=== PATIENT | female | born 1950 | race Caucasian/White ===

== ENCOUNTER 2016-09-28 17:13 | Inpatient (IN) ==
[2016-09-28] MEDS ORDERED: ZOSYN 3.375 GM/NS 3.375 GM/50 ML IVPB IV ONE (17:16)
[2016-09-28] MEDS ORDERED: NS 1,000 ML IV ONE ×2 (17:16→21:31)
[2016-09-28] MEDS ORDERED: FLAGYL 750 MG in NS 150 ML IV ONE (18:22)
[2016-09-28 18:35] LABS: AGAP 14; ALBUMIN 3.4 g/dL (3.5-5.0); ALKALINE PHOSPHATASE 72 U/L (32-104); AMYLASE 24 U/L (20-200); BUN 6 mg/dL (8-22); CALCIUM 8.3 mg/dL (8.8-10.2); CHLORIDE 100 mmol/L (98-107); COSMO 274; GOT 36 U/L (10-30); GPT 22 U/L (10-36); LIPASE 11 U/L (13-60); POTASSIUM 3.7 mmol/L (3.5-5.1); SODIUM 138 mmol/L (136-145); TCO2 24 mmol/L (25-35); TOTAL BILIRUBIN 0.97 mg/dL (0.20-1.00); TOTAL PROTEIN 6.6 g/dL (6.3-8.3)
[2016-09-28 18:49] LABS: BASO% 0.1 % (0.0-0.8); HEMATOCRIT 41.3 % (37.0-47.0); LYMPH# 0.29 X1000 (1.2-3.4); LYMPH% 2.8 % (20.5-51.1); MANUAL DIFF NEEDED? NO; MCH 34.9 PG (27-31); MCHC 33.9 g/dL (33-37); MONO# 0.57 X1000 (0.11-0.59); MONO% 5.6 % (1.7-9.3); MPV 10.2 FL (7.4-10.4); NEUT% 91.5 % (42.2-75.2); PLT 164 X1000 (130-400); RBC 4.01 XMIL (4.2-5.4)
--- NOTE | 2016-09-28 19:21 | PROVIDER DOCUMENTATION ---
This chart was entered by Madeleine Mcintyre Scribe, acting as scribe for Bobby Neal MD. HPI-Abdominal Pain/GI Problem - General Chief Complaint: Abdominal Pain Stated Complaint: post op abd pain Time Seen by Provider: 09/28/16 17:16 Source: patient Allergies/Adverse Reactions: Patient Allergies Allergy/AdvReac Type Severity Reaction Status Date / Time No Known Allergies Allergy Verified 09/28/16 18:09 Home Medications: Home Medication List Medication Instructions Recorded Confirmed Last Taken Type Alendronate Sodium [Alendronate 09/28/16 Unknown History Sodium] Esomeprazole Magnesium [Nexium] 20 mg PO 09/28/16 Unknown History - History of Present Illness-ABD Nature of Presenting Problems: 65 year old F presents to the ED with a cc of ABD pain, nausea, and vomiting. PT states that this has been going on since February 2016. PT states that she had an EGD and colonoscopy today and since then she has had ABD distention and pain. PT states that Dr. Vigil took her back into surgery to relieve some gas. PT has NG tube in place on assessment. Abdominal Pain Onset Location: reports: generalized abdomen Pain Radiation: reports: no radiation Quality of Pain: reports: aching Severity in ED: reports: mild Onset/Duration: reports: this evening Timing: reports: still present Modifying Factors: improves with: nothing Associated Symptoms: reports: denies symptoms Bruising or Bleeding Gums?: No Similar Symptoms Previously?: No Recently seen or treated by another doctor?: Yes Review of Systems - Adult - REVIEW OF SYSTEMS - ADULT Constitutional: denies: chills, fever Eyes: reports: no symptoms reported Ears, Nose, Mouth & Throat: reports: no symptoms reported Cardiovascular: denies: chest pain, palpitations Respiratory: denies: cough, shortness of breath Gastrointestinal: reports: abdominal pain. denies: nausea, vomiting Genitourinary: denies: dysuria, hematuria Musculoskeletal: reports: no symptoms reported Integumentary: reports: no symptoms reported Neurological: reports: no symptoms reported Psychiatric: reports: no symptoms reported Endocrine: reports: no symptoms reported Hematologic/Lymphatic: reports: no symptoms reported Allergic/Immunologic: reports: no symptoms reported All Other Systems: Reviewed and Negative Past History - Adult - PAST MEDICAL HISTORY-ADULT Review of Records: reports: Nursing Assessment Review, Medications Reviewed Major Childhood Illnesses: reports: denies history Musculoskeletal: reports: osteoporosis - PRIOR SURGERIES/PROCEDURES Surgical/Procedure History: reports: other (breast biopsies) - IMMUNIZATION STATUS Childhood Immunizations: See Nurse Assessment Flu Vaccine: See Nurse Assessment - SOCIAL HISTORY Smoking: quit greater than 1 year Substance Use: none/never Alcohol Use Frequency: never Physical Exam-General - PHYSICAL EXAM-ADULT Initial Vital Signs Reviewed: Yes - CONSTITUTIONAL General Appearance: appears well, alert, no apparent distress - HEAD, EARS, NOSE, MOUTH & THROAT HENMT: other (NG tube in place) - RESPIRATORY Respiratory: chest non-tender, lungs clear, normal breath sounds - CARDIOVASCULAR Cardiovascular: normal peripheral pulses, regular rate, rhythm, no edema - GASTROINTESTINAL (ABDOMEN) Abdominal Exam: distended, tenderness (diffuse tenderness) - SKIN Integumentary: normal color, normal turgor, warm/dry - PSYCHIATRIC Psych/Mental Status: normal mood/affect, normal thought content, normal thought process, oriented x 3 Progress - PLAN OF CARE/RESULTS Progress/Plan/Lab Results: Vital Signs - 8 hr 09/28/16 18:08 Temperature 98.6 F Pulse Rate 94 H Respiratory Rate 16 Blood Pressure 133/82 O2 Sat by Pulse Oximetry 98 Laboratory Results - last 24 hr 09/28/16 09/28/16 18:00 18:00 WBC 10.25 RBC 4.01 L Hgb 14.0 Hct 41.3 MCV 103.0 H MCH 34.9 H MCHC 33.9 RDW Std Deviation 12.4 Plt Count 164 MPV 10.2 Immature Gran % (Auto) 0.0 Neut % (Auto) 91.5 H Lymph % (Auto) 2.8 L [place] % (Auto) 5.6 Eos % (Auto) 0.0 Baso % (Auto) 0.1 Immature Gran # (Auto) 0.00 Neut # (Auto) 9.38 H Lymph # (Auto) 0.29 L [place] # (Auto) 0.57 Eos # (Auto) 0.00 Baso # (Auto) 0.01 Sodium 138 Potassium 3.7 Chloride 100 Carbon Dioxide 24 L Anion Gap 14 BUN 6 L Creatinine 0.6 Estimated GFR/1.73 m2 > 60 BUN/Creatinine Ratio 10 Glucose 105 H Calculated Osmolality 274 Calcium 8.3 L Total Bilirubin 0.97 AST 36 H ALT 22 Alkaline Phosphatase 72 Total Protein 6.6 Albumin 3.4 L Globulin 3.2 Albumin/Globulin Ratio 1.1 Amylase 24 Lipase 11 L Orders Category Date Time Status Saline Loc DIRECTED Care 09/28/16 17:16 Active NPO Diet 09/28/16 17:16 Active ABDOMEN/PELVIS W/O CONTRAST [CT] Stat Exams 09/28/16 17:15 Taken AMYLASE [CHEM] Stat Lab 09/28/16 18:00 Completed CBC WITH ELECTRONIC DIFF [HEME] Stat Lab 09/28/16 18:00 Completed COMPREHENSIVE METABOLIC PANEL [CHEM] Stat Lab 09/28/16 18:00 Completed LIPASE [CHEM] Stat Lab 09/28/16 18:00 Completed 0.9% Sodium Chloride Inj [Ns] 1,000 ml Med 09/28/16 17:16 Discontinued IV 999 mls/hr Metronidazole [Flagyl] 750 mg Med 09/28/16 18:22 Active 0.9% Sodium Chloride Inj [Ns] 150 ml IV NOW Piperacil/Tazobact 3.375 gm/Ns [Zosyn 3.375 gm/Ns] Med 09/28/16 17:16 Discontinued 3.375 gm in 50 ml IV NOW Result Diagrams: 09/28/16 18:00 09/28/16 18:00 - CT/MRI 1 CT Study: Abdomen, Pelvis Impression: Abnormal (no perforation, new diverticulitis at splenic flexure, persistent inflammation at sigmoid colon, follow up recommended if not already done: Dr. Zimmer(radiologist)) - CONSULTS/PCP/HOSPITALIST Notification #1 *Consult/PCP/Hospitalist*: Dr. Gómez Time Discussed: 18:31 Consult Disposition: other (Consult again because no labs are back) #2 Consult: Dr. Longo(hospitalist) Time Discussed: 19:14 Consult Disposition: Admit Departure - Departure Time of Disposition Decision: 19:15 DIAGNOSIS: Acute diverticulitis Disposition: ADMITTED INPATIENT 09 Certified Medical Emergency: Emergent Condition: Stable Referrals and Follow-Ups: Silas Soto [Primary Care Provider] - - Critical Care Note This patient required my direct & personal management of CC.: Yes This chart was documented by the indicated scribe, (Madeleine Mcintyre Scribe) and accurately reflects the services I performed and decisions made by me, Bobby Neal MD, as attested by the provider's signature.
[2016-09-28] MEDS: MORPHINE IV ONE (20:32)
[2016-09-28] MEDS ORDERED: ZOFRAN IV ONE (20:36)
[2016-09-28] MEDS ORDERED: ZOFRAN ONE (20:38)
--- NOTE | 2016-09-28 21:00 | CONSULTATION ---
DATE OF CONSULTATION: 09/28/2016 ATTENDING PHYSICIAN: Darío Longo MD. PRIMARY CARE PHYSICIAN: Silas Soto MD. REASON FOR CONSULTATION: Post-colonoscopy abdominal pain and CT scan showing evidence of diverticulitis. HISTORY OF PRESENT ILLNESS: Ms. Short is a 65-year-old female who had been complaining of abdominal pain, nausea, vomiting, diarrhea postprandial for a few months. She saw Dr. Vigil as an outpatient. She underwent EGD and colonoscopy on 09/28/2016. Post- colonoscopy she complained of abdominal distention, nausea, vomiting and abdominal pain. Initially it was thought to be gas retention secondary colonoscopy so Dr. Vigil performed a flexible sigmoidoscopy a few hours later to take the gas out, but despite that patient continued to have abdominal pain, nausea, vomiting, and abdominal distention. The patient had a KUB done at [facility] which does not show any free air. Because of ongoing symptoms of abdominal pain, distention, nausea, vomiting, an NG tube was inserted at [facility] and the patient was transported to [facility]. There the patient went for a CT scan of the abdomen and pelvis and the CT scan showed evidence of diverticulitis, splenic flexure of sigmoid colon. No perforation is detected. I was there with the patient and family while they were undergoing CT scan. PAST MEDICAL HISTORY: Gastroesophageal reflux disease, recurrent diverticulitis. MEDICATIONS AT HOME: 1. Nexium once daily. 2. Alendronate. ALLERGIES: No known drug allergies. FAMILY HISTORY: Noncontributory. REVIEW OF SYSTEMS: Denies any current fevers, rigors, or chills. Denies any chest pain, shortness of breath, dyspnea. Denies any genitourinary complaints. Does complain of feeling nauseous and abdominal pain in the periumbilical region of a diffuse nature. She denies any vomiting blood or passing blood in the stools. She is able to pass some gas while waiting for the CT scan. Prior to that she was having worsening abdominal distention but since passing gas her abdominal distention started to improve. MEDICATIONS IN EMERGENCY ROOM: IV Zosyn, IV fluids and IV Flagyl. She is currently NPO. PHYSICAL EXAMINATION: Vital Signs: Temp 98.6, pulse 94, respiratory rate 16, blood pressure 132/82, saturating 98% on room air. Body weight 205 pounds. Height of 5 feet 6 inches. BMI of 33.1 kg/m2. General: Moderately malnourished lying on a stretcher in mild distress with abdominal pain. HEENT: No pallor. No icterus. Pupils equal, reactive to light. Neck: Supple. Chest: Decreased breath sounds. Heart: Mildly tachycardic. No murmurs. Abdomen: Discomfort in the periumbilical region, left upper and left lower quadrant. No rebound or guarding. Mild distention noted. Bowel sounds are present. Extremities: No cyanosis, clubbing, edema. Neurologic: Alert, awake, oriented. LABS: Hemoglobin and hematocrit is 14 and 41.3, white count 10.2, platelet count of 164,000. MCV of 103, sodium 138, potassium 3.7, chloride 100, bicarbonate 24, BUN of 6, creatinine 0.6, glucose of 105, calcium is 8.3, total bilirubin is 0.97. AST 36, ALT 22, alkaline phosphatase 72, total protein 6.6, albumin 2.4, amylase 34, lipase of 11. CT scan: Final reading is currently pending. The preliminary reading is showing evidence of diverticulitis at splenic flexure and sigmoid colon. IMPRESSION AND PLAN: Post-colonoscopy abdominal pain, worsening distention, nausea, vomiting with CT scan showing evidence of diverticulitis in the splenic flexure and sigmoid colon. She had 1 rectal polyp which was removed during colonoscopy. There was evidence of diverticulosis noted on colonoscopy causing difficulty with vastus scope. Gastritis noted on EGD was biopsied. Reflux disease. RECOMMENDATIONS: At this point, will keep the patient NPO. We will keep her on IV fluids, IV antibiotics and IV pain control. Tomorrow morning if the patient's abdominal pain is getting better we can advance the diet to a clear liquid diet. She will need blood work in the morning. We will start her on GI prophylaxis with PPI. Once able to start p.o., we will start her on Culturelle 1 capsule p.o. b.i.d. for 6 weeks. If the patient is feeling better in a day, we may be able to discharge home on Levaquin and Flagyl for a total of 10 days. The patient will call and schedule an appointment with Dr. Vigil on Sunday/early next week. The above plan was discussed with the patient's family. All questions answered. I also discussed the plan of care with ER physician, Dr. Jordan. cc: Kev Timmons MD MTDD
[2016-09-28] MEDS: SODIUM CHLORIDE 0.9% INJ SCH (21:05)
--- NOTE | 2016-09-28 21:27 | HISTORY AND PHYSICAL ---
CHIEF COMPLAINT: Nausea, vomiting, abdominal pain. HISTORY OF PRESENT ILLNESS: This is a 65-year-old white female with no major medical problems, who came in the outpatient office today with evidence of diverticulitis. The patient had a colonoscopy today per Dr. Vigil for recurrent nausea and vomiting, and she was due for her scheduled outpatient colonoscopy. She underwent the procedure without difficulty. However, subsequently, she developed cramping lower abdominal pain in her lower quadrants. Dr. Vigil was concerned over complications from the colonoscopy, including perforation. She got a CT scan. I am not sure she got it as an outpatient, or in the process of getting to the ER, but there was no bowel perforation. She did have evidence of sigmoid ascending colon diverticulitis, and she was admitted for treatment. Workup in the ER was positive for diverticulitis, and she was admitted as such. NG tube was placed, I guess due to per protracted nausea and vomiting, but she had no bowel perforation, and I do not think she has ileus, although she definitely has dilation of her colon, but that may be related to kind of chronic, or just the recent air insufflation in there. PAST MEDICAL HISTORY: Osteoporosis and reflux, really nothing else. PAST SURGICAL HISTORY: She has had some breast biopsies that were benign. SOCIAL HISTORY: She does not smoke now, but she does have at least around a [id number] history of smoking. Occasional alcohol. Lives with family. ALLERGIES: No known drug allergies. MEDICATIONS: Reportedly only alendronate and Nexium. REVIEW OF SYSTEMS: Otherwise negative. FAMILY HISTORY: Her son has diverticulosis. No cancers in the family. PHYSICAL EXAMINATION: VITAL SIGNS: Blood pressure 133/82, heart rate 94, respiratory rate 16, temperature 98.6 degrees. GENERAL: A well-developed female, in no acute distress. HEAD: Normocephalic, atraumatic. EYES: Pupils equal, round, reactive to light. Extraocular movements were intact. EARS/NOSE/THROAT: Moist mucous membranes. NECK: Supple. CARDIOVASCULAR: Regular rate and rhythm. PULMONARY: Bilateral breath sounds. Clear to auscultation. GASTROINTESTINAL: Soft, distended. Bowel sounds were positive. Pain in lower quadrants. No rebound or guarding. EXTREMITIES: No clubbing or cyanosis. LYMPHATICS: No peripheral edema. NEUROLOGICAL: Nonfocal. LABORATORY DATA: White count is 10. Hemoglobin and hematocrit 14 and 41. Electrolytes looked stable. AST is up a little bit at 37. CT scan, again preliminary, sigmoid inflammation and diverticulitis changes in the ascending colon. ASSESSMENT: A 65-year-old female with protracted nausea and vomiting, presenting with acute diverticulitis after recent colonoscopy, but no evidence of perforation. 1. Diverticulitis. We will continue empiric antibiotics. She has been placed on Zosyn and Flagyl. I am just going to continue Levaquin and Flagyl, and we will follow clinically. She may have an early ileus. She has bowel sounds, and there is no nasogastric output. I think we probably can get the nasogastric tube out soon, hopefully in the morning, if her abdominal films look stable, and treat with analgesics, antiemetics, and IV fluids. 2. She has an esophageal stricture stretch today. We will continue Protonix. I will probably due q.12, and advance her diet slowly. We will consult Dr. Vigil tomorrow just to monitor patient. DISPOSITION: Pending her clinical status. May be a couple days while she is here. cc: MD Marito Arthur MD Jay Pohl, MD
[2016-09-28] MEDS: LOVENOX SUBQ SCH (21:31)
[2016-09-28] MEDS: PROTONIX IV SCH (21:33)
[2016-09-28] MEDS: LEVAQUIN 750 MG/D5W 750 MG/150 ML IVPB IV SCH (21:38)
[2016-09-28] MEDS: MORPHINE IV PRN (22:52)
[2016-09-29] MEDS: FLAGYL 500 MG/NS 500 MG/100 ML IVPB IV SCH ×4 (01:06→18:34)
[2016-09-29] MEDS: MORPHINE IV PRN ×4 (02:35→14:53)
--- NOTE | 2016-09-29 04:14 | CONSULTATION ---
DATE OF CONSULTATION: 09/28/2016 REFERRING PHYSICIAN: Marito Vigil MD REASON FOR CONSULTATION: Abdominal pain after a colonoscopy. HISTORY OF PRESENT ILLNESS: This is a 65-year-old female who has a history of frequent nausea and vomiting since late last year when she had been diagnosed with diverticulitis. She took antibiotics in the abdominal pain subsided but she continues to have frequent postprandial nausea and vomiting. Her abdomen remains sore, she thinks, secondary to retching. She underwent EGD and colonoscopy today. The EGD showed a hiatal hernia and esophageal stricture. The colonoscopy was remarkable for a tortuous colon in the pelvis. She woke up with significant abdominal pain and an abdominal film did not show free air, and Dr. Vigil attempted to decompress her colon with a with a flexible sigmoidoscopy, but she continues to have significant pain. She was sent to the emergency room for CT scan. The CT scan has suggested diverticulitis of the sigmoid colon and splenic flexure but no perforation. She says her abdominal pain has improved some since she left Dr. Vigil's office. She said the pain has improved with passing gas back down. PAST MEDICAL HISTORY: Gastroesophageal reflux disease, diverticulitis, osteoporosis. PAST SURGICAL HISTORY: Benign breast biopsy. MEDICATIONS: Alendronate and Nexium. ALLERGIES: No known drug allergies. SOCIAL HISTORY: She quit smoking. She drinks alcohol occasionally. No illicit drug use. FAMILY HISTORY: Positive for diverticulosis. REVIEW OF SYSTEMS: Ten systems reviewed and negative except as noted above. PHYSICAL EXAMINATION: Vital Signs: Temperature 98.6 degrees, pulse 94, respirations 16, blood pressure 133/82, O2 saturation 98%. General: Well-developed, well-nourished female, in no distress who looks her stated age. HEENT: Normocephalic, atraumatic. Extraocular muscles intact. Pupils equal, round, reactive to light. Sclerae anicteric. Moist mucous membranes. Hearing grossly normal. Neck: Supple. No thyromegaly. CV: Regular rate and rhythm. Respiratory: Bilateral equal breath sounds. No work of breathing. GI: Soft, nondistended. Normal bowel sounds. She is mildly tender in the lower abdomen. No rebound or guarding or mass. No hernias appreciated. Extremities: No clubbing, cyanosis, or edema. Skin: Warm and dry. No rash. Musculoskeletal: Skeletal moves all extremities equally and well. LABORATORY DATA: White blood cell count 10,000, hemoglobin 14, hematocrit 41, platelet count 164,000. Sodium 138, potassium 3.7, chloride 100, CO2 24, BUN 6, creatinine 0.6, glucose 105, lipase 11, AST 36, ALT 22, alkaline phosphatase 72, total bilirubin 0.97. IMAGING: CT of the abdomen and pelvis was reviewed by me. She does have some inflammation associated with diverticula of the sigmoid colon in the pelvis and appears to be may be some mild inflammation at the splenic flexure. Her proximal colon is moderately dilated with air, otherwise her CT is unremarkable. ASSESSMENT/PLAN: A 65-year-old female with diverticulitis. She is being admitted for this. She also has a history of postprandial nausea, vomiting and abdominal discomfort. I suspect this may be related to her hiatal hernia and possibly delayed gastric emptying. I will follow along. cc: Wong Juarez MD
--- NOTE | 2016-09-29 08:06 | Diag Imaging Result Doc PS360 ---
ABDOMEN/PELVIS W/O CONTRAST - 09/28/2016 INDICATION: r/o perforation TECHNIQUE: A CT dose reduction protocol was used. COMPARISON: 03/24/2016 FINDINGS: There may be a nasogastric tube with the tip in the distal esophagus, seen only on the first couple images of the exam. There is some hazy dependent atelectasis in the lungs bilaterally. There is a moderately large hiatal hernia similar to prior. No radiodense renal stones or urinary obstruction. There is a new small area of edema adjacent to the splenic flexure of the colon, at the left lateral side. There is significant wall thickening and inflammation at the sigmoid colon similar to the prior exam. There are numerous distal colon diverticula. No free air or drainable fluid collection. No bowel obstruction. Urinary bladder, uterus, and rectum are normal. There are moderate degenerative changes of the spine. No acute or suspicious bony lesion. IMPRESSION: 1. No perforation. 2. Small area of inflammation at the splenic flexure of the colon, suggesting diverticulitis or surgical instrumentation. 3. Persistent inflammation of the sigmoid colon which is concerning for recurrent diverticulitis or tumor. 4. Nasogastric tube may be in the distal esophagus. 5. Hiatal hernia. Electronically signed by Michael Zimmer 09/29/2016 8:04 AM
[2016-09-29] MEDS: SODIUM CHLORIDE 0.9% INJ SCH ×2 (10:25→22:00)
[2016-09-29] MEDS: PROTONIX IV SCH ×2 (10:25→22:00)
[2016-09-29] MEDS: NS 1,000 ML IV SCH ×2 (11:14→22:01)
[2016-09-29] MEDS: TYLENOL PO PRN (11:14)
--- NOTE | 2016-09-29 12:00 | PROGRESS NOTE ---
DATE: 09/29/2016 SUBJECTIVE: This patient is resting comfortably on the bed. She is still complaining of abdominal pain mostly at the level of the right lower quadrant. No signs of peritoneal irritation. OBJECTIVE: Vital Signs: Temperature 99.1 degrees, pulse 97, respiratory rate 16, blood pressure 106/59, oxygen saturation 98 on 2 L of nasal cannula. HEENT: Head normocephalic. No trauma. PERRLA. Neck: Supple. No JVD. No masses. Central trachea. Cardiovascular: RRR. No murmurs. Chest: Clear to auscultation. No wheezing. No rales. Abdomen: Soft. Distended. Decreased bowel sounds. Generalized pain but mostly at the level of the right lower quadrant, no signs of peritoneal irritation. No rebound. No guarding. Extremities: No clubbing and no cyanosis. Neurological: This patient is alert and oriented x3. No focal neurological deficits. LABORATORY: This is laboratory from yesterday, WBC 10.2, hemoglobin 14, hematocrit 41.3, platelets 164,000. Sodium 138, potassium 3.7, chloride 100, bicarbonate 24, BUN 6, creatinine 0.6, glucose 105, calcium 8.3. I will ask for new CBC and CMP today. ASSESSMENT AND PLAN: 1. Diverticulitis. Continue with the antibiotics this patient is not complaining of nausea or vomiting. She has an nasogastric tube in place. She is still complaining of right lower abdominal pain. No signs of peritoneal irritation. Gastroenterology Department and Surgery Department is following this patient. 2. She had an esophageal stricture stretched yesterday. Continue with Protonix. We will continue following Gastroenterology's recommendations. 3. Obesity. Aware. cc: Albin Garcia MD
[2016-09-29 12:46] LABS: EOS# 0.01 X1000 (0.0-0.7); EOS% 0.2 % (0.0-10.0); HEMATOCRIT 37.1 % (37.0-47.0); HEMOGLOBIN 12.2 g/dL (12.0-16.0); MANUAL DIFF NEEDED? YES; MCH 34.7 PG (27-31); MCHC 32.9 g/dL (33-37); MCV 105.4 FL (81-99); MONO# 0.53 X1000 (0.11-0.59); MONO% 9.3 % (1.7-9.3); MPV 9.7 FL (7.4-10.4); NEUT% 76.5 % (42.2-75.2); PLT 135 X1000 (130-400); RBC 3.52 XMIL (4.2-5.4)
[2016-09-29 12:47] LABS: AGAP 11; ALBUMIN 2.8 g/dL (3.5-5.0); ALKALINE PHOSPHATASE 55 U/L (32-104); BUN 5 mg/dL (8-22); CALCIUM 7.5 mg/dL (8.8-10.2); CHLORIDE 105 mmol/L (98-107); COSMO 275; GOT 22 U/L (10-30); GPT 16 U/L (10-36); POTASSIUM 3.2 mmol/L (3.5-5.1); SODIUM 140 mmol/L (136-145); TCO2 24 mmol/L (25-35); TOTAL BILIRUBIN 0.94 mg/dL (0.20-1.00); TOTAL PROTEIN 5.3 g/dL (6.3-8.3)
[2016-09-29 12:48] LABS: BANDS 6 % (0-1); EOS 2 % (1-10); LYMPHS 20 % (21-51); MONO 6 % (1-9)
[2016-09-29] MEDS: ZOFRAN IV PRN (14:54)
--- NOTE | 2016-09-29 16:35 | PROGRESS NOTE ---
DATE: 09/29/2016 SUBJECTIVE: The patient still complains of significant abdominal pain in the lower abdomen with some nausea. She has tolerated some sips of liquids. She has passed a little gas. OBJECTIVE: Vital signs: She is afebrile. Vital signs are stable. General: She is alert and oriented x3. No acute distress. Gastrointestinal: Soft, nondistended. She does have bowel sounds. There is mild tenderness in the lower abdomen. No rebound or guarding. LABORATORY: White blood cell count 5.7, hemoglobin 12, potassium 3.2, BUN 5, creatinine 5. ASSESSMENT/PLAN: A 65-year-old female with diverticulitis as well as chronic postprandial nausea and vomiting. She will continue IV antibiotics for the diverticulitis. We should keep her on clear liquids for now. Hopefully, she will make improvement over the weekend with conservative treatment. Dr. Nicolas will make rounds for us. cc: Wong Juarez MD
[2016-09-29] MEDS: MORPHINE IV ONE (19:41)
[2016-09-29] MEDS: CULTURELLE PO SCH (22:00)
[2016-09-29] MEDS: LEVAQUIN 750 MG/D5W 750 MG/150 ML IVPB IV SCH (22:01)
[2016-09-29] MEDS: LOVENOX SUBQ SCH (22:01)
[2016-09-30] MEDS: MORPHINE IV PRN ×2 (00:21→08:44)
[2016-09-30] MEDS: FLAGYL 500 MG/NS 500 MG/100 ML IVPB IV SCH ×3 (01:42→16:22)
[2016-09-30] MEDS: TYLENOL PO PRN (01:45)
--- NOTE | 2016-09-30 03:34 | PROGRESS NOTE ---
DATE: 09/29/2016 ATTENDING PHYSICIAN: Dr. Longo. PRIMACY CARE PHYSICIAN: Dr. Silas Soto in [place]. SUBJECTIVE: The patient earlier resting in bed. She has passed some flatus today. She is hungry and wants to drink something. Her NG tube is in place. She wants to get rid of that. She denies any nausea or vomiting. She denies any fevers, rigors, chills. She does complain of abdominal discomfort in the periumbilical region, left upper quadrant, left lower quadrant. She complains of abdominal distention, which is slightly improved from yesterday. OBJECTIVE: Vital Signs: Temperature of 98.3 degrees, pulse rate of 76, respiratory rate 16, blood pressure 115/67 saturating 94% on nasal cannula 2 L. General Appearance: Moderately- nourished, lying in bed, in no acute distress. HEENT: Mild pallor. No icterus. Positive NG tube in place. Neck: Supple. Abdomen: Mild distention noted. Bowel sounds are present. No guarding. Discomfort and tenderness in the periumbilical region, left upper quadrant, at the site of the diverticulitis. Extremities: No cyanosis, clubbing, or edema. Neurologic: She is alert, awake, oriented x3. LABORATORY STUDIES: Hemoglobin and hematocrit is 12.2 and 37.1, white count of 5.7, platelet count of 135,000, MCV of 105.4. Sodium 140, potassium 3.2, chloride 100, bicarbonate 24, anion gap of 11, BUN of 5, creatinine 0.5,, glucose of 69, calcium 7.5, total bilirubin is 0.94. AST 22, ALT 16, alkaline phosphatase 55, total protein 5.3, albumin of 2.8, amylase 24, lipase of 11. The final report of the CAT scan done on 09/28/2016 showed no perforation, small area of inflammation at the splenic flexure of the colon suggesting diverticulitis or surgical instrumentation, persistent inflammation of the sigmoid colon, which is concerning for recurrent diverticulitis or tumor, nasogastric tube in the distal esophagus, hiatal hernia. IMPRESSION AND PLAN: 1. Diverticulitis of the splenic flexure and sigmoid colon. In this regard, the patient will continue on Levaquin and Flagyl for a total of 10 days. We will start her on Culturelle 1 capsule p.o. b.i.d. 2. Abdominal distention. Since the patient is passing flatus, we will discontinue the NG tube. We will start her on a clear liquid diet and advance as tolerated. 3. Reflux disease and hiatal hernia. We will continue on proton pump inhibitor once daily, and patient is going to follow gastroesophageal reflux regimen. 4. There is a good bit of scarring in the left colon from recurrent diverticulitis. Her last CAT scan from March 2016 showed sigmoid diverticulitis and she is having chronic abdominal pain, postprandial nausea and vomiting, and postprandial diarrhea and constipation. At some point, we may have to assess her for possible surgical options, as she is having recurrent attacks of diverticulitis in the left colon. Dr. Juarez is on board and is following the patient. We appreciate his consult. 5. The patient will follow up in the clinic by Dr. Vigil early next week. Over the weekend, if she continues to improve, with improving oral intake and decreasing abdominal distention and pain, she may be able to go home on oral antibiotics and liquid diet. The above plan of care was discussed with the patient and the family - at bedside, and all questions answered. cc: MD Silas Nettles MD Jason R. Seale, MD Alexis R. Penot, MD MTDD
[2016-09-30 06:20] LABS: MANUAL DIFF NEEDED? NO
[2016-09-30 06:21] LABS: BASO% 0.2 % (0.0-0.8); EOS# 0.01 X1000 (0.0-0.7); EOS% 0.2 % (0.0-10.0); HEMATOCRIT 35.9 % (37.0-47.0); LYMPH# 0.75 X1000 (1.2-3.4); LYMPH% 15.6 % (20.5-51.1); MCH 34.7 PG (27-31); MCHC 33.4 g/dL (33-37); MCV 103.8 FL (81-99); MONO# 0.54 X1000 (0.11-0.59); MONO% 11.2 % (1.7-9.3); MPV 10.4 FL (7.4-10.4); NEUT% 72.8 % (42.2-75.2); PLT 139 X1000 (130-400); RBC 3.46 XMIL (4.2-5.4)
[2016-09-30 06:45] LABS: AGAP 11; BUN 3 mg/dL (8-22); CALCIUM 7.5 mg/dL (8.8-10.2); CHLORIDE 105 mmol/L (98-107); COSMO 273; POTASSIUM 3.3 mmol/L (3.5-5.1); SODIUM 139 mmol/L (136-145); TCO2 23 mmol/L (25-35)
[2016-09-30] MEDS: ZOFRAN IV PRN (08:21)
[2016-09-30] MEDS: NS 1,000 ML IV SCH ×2 (08:23→17:45)
[2016-09-30] MEDS: CULTURELLE PO SCH ×2 (08:24→23:48)
[2016-09-30] MEDS: PROTONIX IV SCH ×2 (08:30→23:47)
[2016-09-30] MEDS: SODIUM CHLORIDE 0.9% INJ SCH (08:30)
[2016-09-30] MEDS: POTASSIUM CHLORIDE 20 MEQ/SWI 20 MEQ/100 ML IVPB IV SCH ×3 (11:09→17:42)
--- NOTE | 2016-09-30 15:01 | PROGRESS NOTE ---
DATE: 09/30/2016 Ms. Francisca Short is a 65-year-old white female who was admitted with acute sigmoid diverticulitis and she is now hospital day 2 on IV antibiotics and clinically she is improving on IV antibiotics with less abdominal pain. We will continue her IV antibiotics and treat her conservatively for now. Her white blood cell count is normal. She is on a clear liquid diet. cc: Digna Nicolas MD
--- NOTE | 2016-09-30 16:23 | PROGRESS NOTE ---
DATE: 09/30/2016 SUBJECTIVE: This patient is resting comfortably on the bed. She is still complaining of abdominal pain, mostly at the level of the right lower quadrant, but compared with yesterday, she feels better. No signs of peritoneal irritation and the nasogastric tube has been removed. She is tolerating fluids. OBJECTIVE: Vital Signs: Temperature 98.3 degrees, pulse 76, respiratory rate 16, blood pressure 135/69, oxygen saturation 98% on 2L nasal cannula. HEENT: Head normocephalic. No trauma. PERRLA. Neck: Supple. No JVD. No masses. Central trachea. Cardiovascular: RRR. No murmurs. Chest: Clear to auscultation. No wheezing. No rales. Abdomen: Soft, distended. Decreased bowel sounds. Generalized pain, but mostly at the level of the right lower quadrant. No signs of peritoneal irritation. No rebound. No guarding. Extremities: No clubbing. No cyanosis. No edema. Neurologic: The patient is alert and oriented x3. No focal deficits. LABORATORY: WBC 4.8, hemoglobin 12, hematocrit 35.9, platelets 139,000. Sodium 139, potassium 3.3, chloride 105, bicarbonate 23, BUN 3, creatinine 0.5, glucose 81, calcium 7.5. ASSESSMENT AND PLAN: 1. Diverticulitis. Continue with antibiotics. The pain is getting much better. She denies vomiting. The NG tube was removed and she is tolerating clear liquid diet. No signs of peritoneal irritation. Gastroenterology is on board and the Surgery Department is on board, as well. 2. She had an esophageal stricture stretched 2 days ago. Continue with Protonix. We will continue following the recommendations of the Gastroenterology Department. 3. Obesity. Aware. cc: Albin Garcia MD
[2016-09-30] MEDS: LEVAQUIN 750 MG/D5W 750 MG/150 ML IVPB IV SCH (23:48)
[2016-09-30] MEDS: LOVENOX SUBQ SCH (23:48)
[2016-10-01] MEDS: FLAGYL 500 MG/NS 500 MG/100 ML IVPB IV SCH ×3 (01:11→08:03)
[2016-10-01] MEDS: NS 1,000 ML IV SCH ×2 (01:12→02:41)
[2016-10-01 04:02] VITALS: BP 104/68
[2016-10-01] MEDS: KLOR-CON PO ONE ×2 (05:04→08:31)
[2016-10-01 06:57] LABS: AGAP 14; BUN 1 mg/dL (8-22); CALCIUM 7.9 mg/dL (8.8-10.2); CHLORIDE 105 mmol/L (98-107); COSMO 279; POTASSIUM 3.4 mmol/L (3.5-5.1); SODIUM 143 mmol/L (136-145); TCO2 24 mmol/L (25-35)
[2016-10-01] MEDS: SODIUM CHLORIDE 0.9% INJ SCH (08:31)
[2016-10-01] MEDS: CULTURELLE PO SCH (08:31)
[2016-10-01] MEDS: PROTONIX IV SCH (08:31)
[2016-10-01] MEDS ORDERED: FLAGYL PO SCH (14:00)
--- NOTE | 2016-10-02 05:47 | DISCHARGE SUMMARY ---
ADMISSION DATE: 09/28/2016 DISCHARGE DATE: 10/01/2016 ADMITTING DIAGNOSIS: Sigmoid diverticulitis. DISCHARGE DIAGNOSIS: Sigmoid diverticulitis. PRINCIPLE PROCEDURES: 1. Abdominal and pelvic CT scan with IV and oral contrast. 2. IV antibiotics, clear liquids. CONSULTS: Dr. Kev Timmons and also Dr. Wong Juarez. DISCHARGE DIET: Regular. DISCHARGE DISPOSITION: She will return to our outpatient offices in 1 week for recheck of her diverticulitis. DISCHARGE MEDICATION: She will be sent on Augmentin XR, at least a weeks' worth of p.o. antibiotics at discharge. She is to return to her home medications. HOSPITAL COURSE: Ms. Francisca Short is a 65-year-old, white female. She underwent an EGD and colonoscopy per Dr. Vigil on the day of admission, 09/28/2016. She developed significant abdominal pain after these procedures and she was told to be evaluated in the emergency department for possible complication from her EGD or colonoscopy. A CT scan suggested diverticulitis instead of any perforation. She was admitted by the hospitalists for treatment of sigmoid diverticulitis. She was begun on IV antibiotics. Dr. Timmons and Dr. Wong Juarez were consulted. She symptomatically improved quickly on IV antibiotics. It was felt safe to discharge her to her home under the care of her family on 10/01/2016 on p.o. antibiotics with followup in our outpatient offices in a week. On the day of discharge, her heart rate was 79, blood pressure 104/68, O2 saturation 92%. She was voiding without difficulty and had several bowel movements. She was tolerating a diet and she had no abdominal pain. Her abdomen was soft. She was afebrile. Her white blood cell count was normal. Her electrolytes were within normal limits. She knows to contact us with any increasing abdominal pain, fever, or distention. She also knows to contact us if she has any trouble taking her p.o. antibiotics. We did stress how important it was to continue p.o. antibiotics at discharge. cc: MD Marito Schmidt MD Jason R. Seale, MD
--- NOTE | 2016-10-02 06:17 | DISCHARGE SUMMARY ---
ADMISSION DATE: 09/28/2016 DISCHARGE DATE: 10/01/2016 DISCHARGE DIAGNOSES: 1. Diverticulitis. 2. Esophageal stricture that was stretched three days ago. 3. Obesity. CONSULTATIONS: Gastroenterology department, Dr. Timmons, and surgery department, Dr. Juarez. HOSPITAL COURSE: This is a 65-year-old, female with no past medical history who came in to the outpatient office with evidence of diverticulitis. That day, on 09/28/2016, this patient had a colonoscopy done by Dr. Vigil for recurrent nausea and vomiting. She underwent the procedure without any problems. However, she developed cramping lower abdominal pain at the level of the lower quadrants. A CT scan was performed. No bowel perforation was shown but there was evidence of sigmoid, ascending colon diverticulitis. She was admitted for treatment. She was a little bit distended and the bowel sounds were decreased. An NG tube was placed because this patient was complaining of protracted nausea and vomiting. Like I said before, no bowel perforation. Surgery department was consulted to monitor this abdominal distention and NG tube. This patient was improving on a daily basis. She was placed on antibiotics, metronidazole and Flagyl. The NG was removed and this patient was started on a diet. She tolerated the diet and also she started passing gas and having bowel movement. The abdominal pain that was located mostly at the right lower quadrant improved. After evaluation by the surgery department, we decided to discharge this patient today with followup by her primary care doctor. Also, surgery department will follow her up in 1 week. She was advised to take her medications as prescribed and advance the diet as tolerated. The was at the bedside. FOLLOWUP: Followup by her primary care doctor in 1 week and followup with the surgery department in 1 week as well. PHYSICAL EXAMINATION: Vital Signs: Temperature 98.3 degrees, pulse 79, respiratory rate 16, blood pressure 104/68, oxygen saturation 92 on room air. HEENT: Head normocephalic. No trauma. PERRLA. Neck: Supple. No JVD. No masses. Central trachea. Chest: Clear to auscultation. No wheezing. No rales. Cardiovascular: RRR. No murmurs. Abdomen: Soft. Mild tenderness to palpation at the level of the right lower quadrant. Otherwise stable. Positive bowel sounds. No signs of peritoneal irritation. Extremities: No edema. No clubbing. No cyanosis. Neurological Examination: The patient is alert and oriented x3. No focal neurological deficits. LABORATORY: Sodium 143, potassium 3.4, chloride 105, bicarbonate 24, BUN 1, creatinine 0.4, glucose 74, calcium 7.9. DISCHARGE MEDICATION: Pantoprazole 40 mg p.o. daily, Flagyl 500 mg p.o. q.6 hours for 7 days, levofloxacin 500 mg p.o. daily for 7 days, Culturelle 1 tablet p.o. twice a day, acetaminophen 650 mg p.o. q.6 hours p.r.n. fever/pain. TIME DISCHARGING PATIENT: 40 minutes. cc: Albin Garcia MD
[2016-10-02] MEDS ORDERED: PROTONIX PO SCH (07:00)
[2016-10-02] MEDS ORDERED: LEVAQUIN PO SCH (21:00)
== END 2016-10-01 11:00 | disposition home or self-care (01) ==
LOC: ED 17:13 → SUATTDRO 21:51 → 4N 21:51
PROVIDERS: ATTEND Internal Medicine